=== PATIENT | female | born 1960 | race Caucasian/White ===

== ENCOUNTER 2017-03-07 22:36 | Emergency (ER) | payer OTHER ==
[~2017-03-07] VITALS: Ht 160 cm; Wt 55.0 kg
[2017-03-07 22:55] VITALS: BP 128/85; PULSE 72; RESP 18; TEMP 98.3; O2SAT 99
[2017-03-07] MEDS ORDERED: LEVO.075 PO (22:55)
--- NOTE | 2017-03-07 23:12 | PD ---
HPI Chief Complaint: Psychiatric Symptoms Time Seen by Provider: 22:55 Travel History International Travel<30 days: No Contact w/Intl Traveler<30days: No Traveled to known affect area: No History of Present Illness HPI Patient is a 56 year old female who presents to the ER under Chapa Act for suicidal ideations. Patient reports that she is a recovering alcoholic, reports that she began drinking alcohol over the past few weeks as she is depressed as she is going through a divorce. Patient reports that she is depressed, denies si/hi at this time. As per chapa act, patient's mother called police as patient was intoxicated and made a suicidal comment, "just wanted to ." Patient admitted that she was intoxicated with history of bipolar disorder, reports that she has been off her medications as she lost her script during her move. Patient was placed under Chapa Act as she refused voluntary mental health screening. ON LICENSE OF [facility] Social History Alcohol Use: Yes Tobacco Use: No Substance Use: No Allergies-Medications (Allergen,Severity, Reaction): Coded Allergies: silver sulfadiazine (Verified Allergy, Unknown, 03/07/17) Reported Meds & Prescriptions Reported Meds & Active Scripts Active Reported Synthroid (Levothyroxine Sodium) 75 Mcg Tab 75 Mcg PO DAILY Review of Systems General / Constitutional: No: Fever Eyes: No: Visual changes HENT: No: Headaches Cardiovascular: No: Chest Pain or Discomfort Respiratory: No: Shortness of Breath Gastrointestinal: No: Abdominal Pain Genitourinary: No: Dysuria Musculoskeletal: No: Pain Skin: No Rash Neurologic: No: Weakness Psychiatric: Positive: Depression, Suicidal Ideations, Substance Abuse, No: Homicidal Ideation Endocrine: No: Polydipsia Hematologic/Lymphatic: No: Easy Bruising Physical Exam Narrative GENERAL: patient intoxicated SKIN: Focused skin assessment warm/dry. HEAD: Atraumatic. Normocephalic. EYES: Pupils equal and round. No scleral icterus. No injection or drainage. ENT: No nasal bleeding or discharge. Mucous membranes pink and moist. NECK: Trachea midline. No JVD. CARDIOVASCULAR: Regular rate and rhythm. No murmur appreciated. RESPIRATORY: No accessory muscle use. Clear to auscultation. Breath sounds equal bilaterally. GASTROINTESTINAL: Abdomen soft, non-tender, nondistended. Hepatic and splenic margins not palpable. MUSCULOSKELETAL: No obvious deformities. No clubbing. No cyanosis. No edema. NEUROLOGICAL: Awake and alert. No obvious cranial nerve deficits. Motor grossly within normal limits. Normal speech. PSYCHIATRIC:Depressed mood and affect; +SI, -HI Data Data Last Documented VS Vital Signs Date Time Temp Pulse Resp B/P (MAP) Pulse Ox O2 Delivery O2 Flow Rate FiO2 03/07/17 22:55 98.3 72 18 128/85 (99) 99 Orders Orders Complete Blood Count With Diff (03/07/17 23:00) Comprehensive Metabolic Panel (03/07/17 23:00) Psych Screen (03/07/17 23:00) Drug Screen, Random Urine (03/07/17 23:00) Alcohol (Ethanol) (03/07/17 23:00) Urinalysis - C+S If Indicated (03/07/17 23:00) Diphenhydramine Inj (Benadryl Inj) (03/07/17 23:15) Labs Laboratory Tests Test 03/07/17 23:00 White Blood Count 5.1 TH/MM3 Red Blood Count 4.23 MIL/MM3 Hemoglobin 12.2 GM/DL Hematocrit 37.7 % Mean Corpuscular Volume 89.1 FL Mean Corpuscular Hemoglobin 28.9 PG Mean Corpuscular Hemoglobin Concent 32.4 % Red Cell Distribution Width 16.6 % Platelet Count 241 TH/MM3 Mean Platelet Volume 7.6 FL Neutrophils (%) (Auto) 41.6 % Lymphocytes (%) (Auto) 37.7 % Monocytes (%) (Auto) 7.2 % Eosinophils (%) (Auto) 11.5 % Basophils (%) (Auto) 2.0 % Neutrophils # (Auto) 2.1 TH/MM3 Lymphocytes # (Auto) 1.9 TH/MM3 Monocytes # (Auto) 0.4 TH/MM3 Eosinophils # (Auto) 0.6 TH/MM3 Basophils # (Auto) 0.1 TH/MM3 CBC Comment DIFF FINAL Differential Comment Blood Urea Nitrogen 8 MG/DL Creatinine 0.66 MG/DL Random Glucose 96 MG/DL Total Protein 7.2 GM/DL Albumin 3.4 GM/DL Calcium Level 8.3 MG/DL Alkaline Phosphatase 89 U/L Aspartate Amino Transf (AST/SGOT) 42 U/L Alanine Aminotransferase (ALT/SGPT) 35 U/L Total Bilirubin 0.1 MG/DL Sodium Level 144 MEQ/L Potassium Level 4.1 MEQ/L Chloride Level 108 MEQ/L Carbon Dioxide Level 30.2 MEQ/L Anion Gap 6 MEQ/L Estimat Glomerular Filtration Rate 93 ML/MIN Ethyl Alcohol Level 328 MG/DL MDM Medical Decision Making Medical Screen Exam Complete: Yes Emergency Medical Condition: Yes Medical Record Reviewed: Yes Interpretation(s) Vital Signs Date Time Temp Pulse Resp B/P (MAP) Pulse Ox O2 Delivery O2 Flow Rate FiO2 03/07/17 22:55 98.3 72 18 128/85 (99) 99 Differential Diagnosis etoh intoxication, depression Narrative Course Psychiatric screening labs ordered. Patient reports history of hives - requesting IV Benadryl. Patient contracts for safety at this time Veena Moore DO Mar 07, 2017 23:12
[2017-03-07] MEDS ORDERED: diphenhydrAMINE HCL 50 MG/ML VIAL IV PUSH ONE (23:15)
[2017-03-07 23:38] LABS: AUTOMATED NEUTROPHIL # 2.1 TH/MM3 (1.8-7.7); BASOPHIL # 0.1 TH/MM3 (0-0.2); EOSINOPHIL # 0.6 TH/MM3 (0-0.4); EOSINOPHIL % 11.5 % (0.0-4.0); HEMATOCRIT 37.7 % (35.0-46.0); HEMO FLAGS DIFF FINAL; LYMPH % 37.7 % (9.0-44.0); LYMPHOCYTE # 1.9 TH/MM3 (1.0-4.8); MEAN CELL VOLUME 89.1 FL (80.0-100.0); MEAN CORPUSCULAR HEMOGLOBIN 28.9 PG (27.0-34.0); MEAN CORPUSCULAR HGB CONC 32.4 % (32.0-36.0); MONO % 7.2 % (0.0-8.0); NEUT % 41.6 % (16.0-70.0); PLATELET COUNT 241 TH/MM3 (150-450); RED BLOOD COUNT 4.23 MIL/MM3 (4.00-5.30); RED CELL DISTRIBUTION WIDTH 16.6 % (11.6-17.2); WHITE BLOOD COUNT 5.1 TH/MM3 (4.0-11.0)
[2017-03-08 00:18] LABS: ALT (GPT) 35 U/L (10-53); ANION GAP 6 MEQ/L (5-15); AST (GOT) 42 U/L (15-37); BICARBONATE 30.2 MEQ/L (21.0-32.0); BLOOD UREA NITROGEN 8 MG/DL (7-18); CHLORIDE 108 MEQ/L (98-107); GLOMERULAR FILTRATION RATE 93 ML/MIN (>89); POTASSIUM 4.1 MEQ/L (3.5-5.1); SODIUM (NA) 144 MEQ/L (136-145)
[2017-03-08 00:22] LABS: ALKALINE PHOSPHATASE 89 U/L (45-117); TOTAL BILIRUBIN ADULT 0.1 MG/DL (0.2-1.0)
[2017-03-08 01:06] LABS: ALCOHOL 328 MG/DL (0-5)
[2017-03-08] MEDS ORDERED: TOPI25TA7 PO (03:17)
[2017-03-08] MEDS ORDERED: METH18 PO (03:17)
[2017-03-08] MEDS ORDERED: ZOLO50TA PO (03:17)
[2017-03-08 03:30] VITALS: BP 107/64; PULSE 71; RESP 18; TEMP 98.1; O2SAT 100
[2017-03-08 04:02] LABS: BLOOD, URINE NEG (NEG); COMMENT (UR) CULT NOT INDICATED; CULTURE IF INDICATED CULT NOT INDICATED; GLUCOSE,URINE NEG (NEG); KETONE, URINE NEG (NEG); NITRITE,URINE NEG (NEG); SQUAMOUS EPITHELIAL CELL URINE 5 /hpf (0-5); URINE COLOR YELLOW (YELLW/STRAW)
[2017-03-08 06:15] VITALS: BP 91/55; PULSE 65; RESP 17; O2SAT 95
[2017-03-08] MEDS ORDERED: ACETAMINOPHEN 325 MG TAB PO ONE (06:15)
[2017-03-08] MEDS ORDERED: IBUPROFEN 600 MG TAB PO ONE (08:15)
--- NOTE | 2017-03-08 10:32 | RADRPT ---
EXAM DATE/TIME: 03/08/2017 10:18 [place] COMPARISON: No previous studies available for comparison. INDICATIONS : Cephalgia today. RADIATION DOSE: 29.35 CTDIvol (mGy) MEDICAL HISTORY : Carcinoma, breast. SURGICAL HISTORY : Mastectomy, bilateral. ENCOUNTER: Initial ACUITY: 1 day PAIN SCALE: 8/10 LOCATION: Left occipital head TECHNIQUE: Multiple contiguous axial images were obtained of the head. Using automated exposure control and adj ustment of the mA and/or kV according to patient size, radiation dose was kept as low as reasonably a chievable to obtain optimal diagnostic quality images. DICOM format image data is available electro nically for review and comparison. FINDINGS: CEREBRUM: The ventricles are normal for age. No evidence of midline shift, mass lesion, hemorrhage or acute in farction. No extra-axial fluid collections are seen. POSTERIOR FOSSA: The cerebellum and brainstem are intact. The 4th ventricle is midline. The cerebellopontine angle i s unremarkable. EXTRACRANIAL: The visualized portion of the orbits is intact. There is a 1.5 cm left frontal subgaleal nodule. SKULL: The calvaria is intact. No evidence of skull fracture. CONCLUSION: 1. No acute intracranial abnormality. 2. 1.5 cm left frontal subgaleal nodule. Anam Irwin MD on March 08, 2017 at 10:28 Board Certified Radiologist. This report was verified electronically.
[2017-03-08 10:46] VITALS: BP 121/78; PULSE 81; RESP 18; TEMP 97.8; O2SAT 99
--- NOTE | 2017-03-08 13:44 | PD ---
History of Present Illness Chief Complaint: Psychiatric Symptoms Time Seen by Provider: 13:30 Travel History International Travel<30 Days: No Contact w/Intl Traveler<30days: No Known affected area: No Legal Status Legal Status: Chapa Act [facility]a [facility] History of Present Illness: 56-year-old female presented under a Chapa act by [facility]'s office after patient reportedly stated she wanted to . When evaluated by law enforcement she was intoxicated and depressed. She reportedly had a diagnosis of bipolar disorder but this was questionable. She also is going through a divorce of a 25 year marriage and believes her may be unfaithful. It is noted that her alcohol level was over 300 last night. At this time the patient is no longer intoxicated. She denies any suicidal or homicidal ideation, plan or intent. She has no psychotic symptoms and her cognition is intact. She is verbally kenn for safety and she is competent to do so. PFSH Past Medical History Bipolar Disorder: Yes Cancer: Yes (BREAST) Psychiatric: Yes Past Surgical History Other Surgery: Yes (BILATERAL MASECTOMY, BILATERAL BREAST AUG) Psychiatric History Psychiatric History Hx Psychiatric Treatment: [facility] History of Inpatient Treatment: Yes Guns or firearms in home: No Social History Hx Alcohol Use: Yes Hx Tobacco Use: No Hx Substance Use: Yes (CHRONIC ALCOHOL ABUSE) Substance Use Type: Alcohol Hx of Substance Use Treatment: Yes Allergies-Medications (Allergen,Severity, Reaction): Coded Allergies: silver sulfadiazine (Verified Allergy, Unknown, 03/07/17) Reported Meds & Prescriptions Reported Meds & Active Scripts Active Reported Concerta (Methylphenidate HCl) 18 Mg Anam 18 Mg PO DAILY Topiramate 25 Mg Tab 25 Mg PO BID Zoloft (Sertraline HCl) 50 Mg Tab 50 Mg PO DAILY Synthroid (Levothyroxine Sodium) 75 Mcg Tab 75 Mcg PO DAILY Review of Systems Except as stated in HPI: all other systems reviewed are Neg Mental Status Examination Appearance: Appropriate Consciousness: Alert Orientation: x4 Motor Activity: Normal gait Speech: Unremarkable Language: Adequate Fund of Knowledge: Adequate Attention and Concentration: Adequate Memory: Unremarkable Mood: Appropriate Affect: Appropriate Thought Process & Associations: Intact Thought Content: Appropriate Hallucination Type: None Delusion Type: None Suicidal Ideation: No Suicidal Plan: No Suicidal Intention: No Homicidal Ideation: No Homicidal Plan: No Homicidal Intention: No Insight: Adequate Judgment: Adequate MDM Medical Decision Making Medical Record Reviewed: Yes Assessment/Plan Patient interviewed at bedside, medical record reviewed and case discussed with nurse Thuy. Patient is no longer intoxicated and she is verbally kenn for safety. She has no suicidal or homicidal ideation, plan or intent. She has no psychotic symptoms and her cognition is intact. She is felt to be competent to make these decisions. Orders Orders Complete Blood Count With Diff (03/07/17 23:00) Comprehensive Metabolic Panel (03/07/17 23:00) Psych Screen (03/07/17 23:00) Drug Screen, Random Urine (03/07/17 23:00) Alcohol (Ethanol) (03/07/17 23:00) Urinalysis - C+S If Indicated (03/07/17 23:00) Diphenhydramine Inj (Benadryl Inj) (03/07/17 23:15) Diet Regular Basic (03/08/17 Breakfast) Acetaminophen (Tylenol) (03/08/17 06:15) Ct Brain W/O Iv Contrast(Rout) (03/08/17 ) Ibuprofen (Motrin) (03/08/17 08:15) Diet Regular Basic (03/08/17 Lunch) Results Vital Signs Date Time Temp Pulse Resp B/P (MAP) Pulse Ox O2 Delivery O2 Flow Rate FiO2 03/08/17 10:46 97.8 81 18 121/78 (92) 99 Room Air 03/08/17 06:15 65 17 91/55 (67) 95 Room Air 03/08/17 03:30 98.1 71 18 107/64 (78) 100 Room Air 03/07/17 22:55 98.3 72 18 128/85 (99) 99 Laboratory Tests Test 03/07/17 23:00 03/08/17 03:25 White Blood Count 5.1 Red Blood Count 4.23 Hemoglobin 12.2 Hematocrit 37.7 Mean Corpuscular Volume 89.1 Mean Corpuscular Hemoglobin 28.9 Mean Corpuscular Hemoglobin Concent 32.4 Red Cell Distribution Width 16.6 Platelet Count 241 Mean Platelet Volume 7.6 Neutrophils (%) (Auto) 41.6 Lymphocytes (%) (Auto) 37.7 Monocytes (%) (Auto) 7.2 Eosinophils (%) (Auto) 11.5 Basophils (%) (Auto) 2.0 Neutrophils # (Auto) 2.1 Lymphocytes # (Auto) 1.9 Monocytes # (Auto) 0.4 Eosinophils # (Auto) 0.6 Basophils # (Auto) 0.1 CBC Comment DIFF FINAL Differential Comment Blood Urea Nitrogen 8 Creatinine 0.66 Random Glucose 96 Total Protein 7.2 Albumin 3.4 Calcium Level 8.3 Alkaline Phosphatase 89 Aspartate Amino Transf (AST/SGOT) 42 Alanine Aminotransferase (ALT/SGPT) 35 Total Bilirubin 0.1 Sodium Level 144 Potassium Level 4.1 Chloride Level 108 Carbon Dioxide Level 30.2 Anion Gap 6 Estimat Glomerular Filtration Rate 93 Ethyl Alcohol Level 328 Urine Color YELLOW Urine Turbidity CLEAR Urine pH 7.0 Urine Specific [place] 1.014 Urine Protein NEG Urine Glucose (UA) NEG Urine Ketones NEG Urine Occult Blood NEG Urine Nitrite NEG Urine Bilirubin NEG Urine Urobilinogen LESS THAN 2.0 Urine Leukocyte Esterase MOD Urine RBC 1 Urine WBC 6 Urine Squamous Epithelial Cells 5 Microscopic Urinalysis Comment CULT NOT INDICATED Urine Opiates Screen NEG Urine Barbiturates Screen NEG Urine Amphetamines Screen NEG Urine Benzodiazepines Screen NEG Urine Cocaine Screen NEG Urine Cannabinoids Screen NEG Diagnosis Primary Impression: Alcohol abuse Jarred Sandoval MD Mar 08, 2017 13:44
--- NOTE | 2017-03-08 15:01 | PD ---
Physical Exam Date Seen by Provider: Mar 08, 2017 Time Seen by Provider: 14:30 Data Data Last Documented VS Vital Signs Date Time Temp Pulse Resp B/P (MAP) Pulse Ox O2 Delivery O2 Flow Rate FiO2 03/08/17 14:47 03/08/17 10:46 97.8 81 18 99 Room Air Orders Orders Complete Blood Count With Diff (03/07/17 23:00) Comprehensive Metabolic Panel (03/07/17 23:00) Psych Screen (03/07/17 23:00) Drug Screen, Random Urine (03/07/17 23:00) Alcohol (Ethanol) (03/07/17 23:00) Urinalysis - C+S If Indicated (03/07/17 23:00) Diphenhydramine Inj (Benadryl Inj) (03/07/17 23:15) Diet Regular Basic (03/08/17 Breakfast) Acetaminophen (Tylenol) (03/08/17 06:15) Ct Brain W/O Iv Contrast(Rout) (03/08/17 ) Ibuprofen (Motrin) (03/08/17 08:15) Diet Regular Basic (03/08/17 Lunch) Ed Discharge Order (03/08/17 14:44) Labs Laboratory Tests Test 03/07/17 23:00 03/08/17 03:25 White Blood Count 5.1 TH/MM3 Red Blood Count 4.23 MIL/MM3 Hemoglobin 12.2 GM/DL Hematocrit 37.7 % Mean Corpuscular Volume 89.1 FL Mean Corpuscular Hemoglobin 28.9 PG Mean Corpuscular Hemoglobin Concent 32.4 % Red Cell Distribution Width 16.6 % Platelet Count 241 TH/MM3 Mean Platelet Volume 7.6 FL Neutrophils (%) (Auto) 41.6 % Lymphocytes (%) (Auto) 37.7 % Monocytes (%) (Auto) 7.2 % Eosinophils (%) (Auto) 11.5 % Basophils (%) (Auto) 2.0 % Neutrophils # (Auto) 2.1 TH/MM3 Lymphocytes # (Auto) 1.9 TH/MM3 Monocytes # (Auto) 0.4 TH/MM3 Eosinophils # (Auto) 0.6 TH/MM3 Basophils # (Auto) 0.1 TH/MM3 CBC Comment DIFF FINAL Differential Comment Blood Urea Nitrogen 8 MG/DL Creatinine 0.66 MG/DL Random Glucose 96 MG/DL Total Protein 7.2 GM/DL Albumin 3.4 GM/DL Calcium Level 8.3 MG/DL Alkaline Phosphatase 89 U/L Aspartate Amino Transf (AST/SGOT) 42 U/L Alanine Aminotransferase (ALT/SGPT) 35 U/L Total Bilirubin 0.1 MG/DL Sodium Level 144 MEQ/L Potassium Level 4.1 MEQ/L Chloride Level 108 MEQ/L Carbon Dioxide Level 30.2 MEQ/L Anion Gap 6 MEQ/L Estimat Glomerular Filtration Rate 93 ML/MIN Ethyl Alcohol Level 328 MG/DL Urine Color YELLOW Urine Turbidity CLEAR Urine pH 7.0 Urine Specific [place] 1.014 Urine Protein NEG mg/dL Urine Glucose (UA) NEG mg/dL Urine Ketones NEG mg/dL Urine Occult Blood NEG Urine Nitrite NEG Urine Bilirubin NEG Urine Urobilinogen LESS THAN 2.0 MG/DL Urine Leukocyte Esterase MOD Urine RBC 1 /hpf Urine WBC 6 /hpf Urine Squamous Epithelial Cells 5 /hpf Microscopic Urinalysis Comment CULT NOT INDICATED Urine Opiates Screen NEG Urine Barbiturates Screen NEG Urine Amphetamines Screen NEG Urine Benzodiazepines Screen NEG Urine Cocaine Screen NEG Urine Cannabinoids Screen NEG MDM Medical Record Reviewed: Yes Supervised Visit with ROCKY: No Narrative Course 56-year-old female presented to the emergency room yesterday under Chapa act for evaluation of suicidal ideation. Patient is chronic alcohol user and states she drank too much last night he comes of depression. She complained of headache and tenderness to palpation of left occipital region after being medically cleared. CT head was performed because she had no memory of last night's events but believes she may have fallen or hit her head. No focal neurological deficits. She is communicating without difficulty. CT is normal except for cyst which patient knows about. States she is anxious to leave and go back to her AA meetings. Denies suicidal or homicidal ideations at this time. She was seen by the psychiatrist this morning and Chapa act was lifted. He did not feel she was a threat to herself and others at this time. She is stable for discharge. Diagnosis Primary Impression: Alcohol abuse Patient Instructions: General Instructions, Abuse of Alcohol (ED) Departure Forms: Tests/Procedures Additional Instruction: Contract for safety. Follow up as discussed. Return to emergency department as needed. Disposition: 01 DISCHARGE HOME Condition: Stable Milagro Reeves Mar 08, 2017 15:00
== END 2017-03-08 14:55 | disposition home or self-care (01) ==
LOC: NEPE 22:36 → NEPJ 03-08 14:55
DX: F10.10 Alcohol abuse, uncomplicated (principal); R45.851 Suicidal ideations; F31.9 Bipolar disorder, unspecified; Y90.8 Blood alcohol level of 240 mg/100 ml or more
CPT/HCPCS: 70450; 80053; 80307; 81001; 85025; 96374; 99285; J1200